=== PATIENT | male | born 1980 | race Hispanic/Latino ===

== ENCOUNTER 2022-01-24 02:27 | Emergency (ER) | payer BC ==
[2022-01-24] MEDS ORDERED: Proparacaine 0.5% Opth 15 ML BOT ONE (03:34)
[2022-01-24] MEDS ORDERED: Fluorescein Opthalmic Strip ONE (03:39)
== END 2022-01-24 04:46 | disposition home or self-care (01) ==
LOC: ERS 02:27
DX: H10.213 Acute toxic conjunctivitis, bilateral (principal); T50.995A Adverse effect of other drugs, medicaments and biological substances, initial encounter
CPT/HCPCS: 99283